=== PATIENT | female | born 1970 | race Caucasian/White ===

== ENCOUNTER → 2016-08-21 | Outpatient (CLI) | payer OTHER ==
[~2016-08-21] MED LIST: GADOBUTROL 10 ML VIAL IVP ONE
--- NOTE | 2016-08-21 13:03 | MR ---
MRI of the Brain (Without and with contrast Contrast) History: Atypical facial pain. G 50.1, pain is around eye and face Technique: T1-weighted images were acquired axially and sagittally from the foramen magnum to the ve rtex. Axial fast inversion recovery, fast T2-weighted, GRE and diffusion-weighted axial images were obtained without contrast. 6.5 mL Gadavist injected intravenously without complication. Sagittal axia l and coronal T1-weighted images. Findings: There is a single, nonspecific, curvilinear isovolumic, T2 bright focus of white matter hyp erintensity in the deep white matter of the left posterior parietal lobe, that is not associated with reduced diffusion, hemorrhage or abnormal enhancement. The ventricles, cisterns, and sulci are norm al without atrophy, hydrocephalus, midline shift, herniation, or epidural/subdural hematomas. No intr acranial hemorrhage or masses. The region of the cavernous sinuses and Meckel's cave are symmetric an d normal. There is no abnormal enhancement of either trigeminal nerve. No abnormal signal or enhancem ent is present in the franchesca. Diffusion-weighted sequence demonstrates no acute infarct. Cerebellar ton sils are in normal position. The cerebellar pontine angles, internal auditory canals and middle ears are symmetric and normal. No obvious parotid gland abnormality is identified. Pituitary gland is norm al in size. Normal signal flow-void in the superior sagittal sinus, basilar artery, and bilateral int ernal carotid arteries indicating patency there is a small benign pineal cyst. There is no abnormal m eningeal enhancement to suggest meningitis. Interestingly the pituitary stalk is mildly deviated towa rd the patient's right there is possibly subtle hypoenhancement of the left pituitary gland.. Paranas al sinuses and mastoid air cells are clear. Incidentally noted is degenerative change in the mid cerv ical spine, superimposed upon a congenitally small cervical neural canal with a possible disk protrus ion causing central canal stenosis at C5-C6.Both temporomandibular joint menisci are anteriorly dislo cated in the closed mouth position. Impression: 1. Nonspecific white matter lesion, deep in the left parietal white matter. This can be followed on subsequent MRI as clinically directed. 2. Subtle evidence for a possible left pituitary microadenoma. If clinically indicated a dedicated pi tuitary MRI could be performed. 3. No source for atypical facial pain identified. Perhaps this is a prodrome for herpes zoster. 4. Bilateral temporal mandibular joint menisci dysfunction. If this is clinically important to evalua te, then dedicated MRI of the TMJs in the closed and open mouth position could be performed. 5. Possible cervical spinal stenosis.
== END ==
LOC: FIMAGING 10:39
PROVIDERS: ATTEND Psychiatry & Neurology Neurology
DX: G50.1 Atypical facial pain (principal); R93.0 Abnormal findings on diagnostic imaging of skull and head, not elsewhere classified; M26.69 Other specified disorders of temporomandibular joint
CPT/HCPCS: A9585

== ENCOUNTER → 2016-11-27 | Outpatient (CLI) | payer OTHER | LOC: FIMAGING 13:25 | PROVIDERS: ATTEND Psychiatry & Neurology Neurology | DX: M48.02 Spinal stenosis, cervical region (principal); M50.30 Other cervical disc degeneration, unspecified cervical region; R20.2 Paresthesia of skin ==

== ENCOUNTER 2018-08-30 11:02 | Day surgery (SDC) | payer OTHER ==
[2018-08-30] MEDS ORDERED: MIDAZOLAM 2 MG/2 ML VIAL IVP ONE (11:06)
[2018-08-30] MEDS ORDERED: LR 1,000 ML IV ONE (11:22)
--- NOTE | 2018-08-30 11:55 | PDANEPAE ---
ANE Past Medical History - Cardiovascular History Hx Hypertension: No Hx Arrhythmias: No Hx Chest Pain: No Hx Coronary Artery / Peripheral Vascular Disease: No Hx CHF / Valvular Disease: No Hx Palpitations: No - Pulmonary History Hx COPD: No Hx Asthma/Reactive Airway Disease: No Hx Recent Upper Respiratory Infection: No Hx Oxygen in Use at Home: No Hx Sleep Apnea: No Sleep Apnea Screening Result - Last Documented: Negative - Neurologic History Hx Cerebrovascular Accident: No Hx Seizures: No Hx Dementia: No - Endocrine History Hx Diabetes: No - Renal History Hx Renal Disorders: No - Liver History Hx Hepatic Disorders: No - Neurological & Psychiatric Hx Hx Neurological and Psychiatric Disorders: Yes Neurological / Psychiatric History Comment: slight tremor. anxiety - Cancer History Hx Cancer: Yes Cancer History Comment: colon cancer - Congenital Disorder History Hx Congenital Disorders: No - GI History Hx Gastrointestinal Disorders: Yes Gastrointestinal History Comment: acid reflux - Other Health History Other Health History: none - Chronic Pain History Chronic Pain: Yes (arthritis to neck limited rom) - Surgical History Prior Surgeries: none in last 5 yrs ANE Review of Systems Review of Systems: - Exercise capacity METS (RN): 5 METS ANE Patient History - Allergies Allergies/Adverse Reactions: adhesive [Adhesive] Allergy (Mild, Verified 08/23/18 16:20) Rash - Home Medications Home Medications: Acetaminophen 08/23/18 [Last Taken 08/29/18] Herbals/Supplements -Info Only 08/23/18 [Last Taken 08/29/18] Famotidine 08/30/18 [Last Taken 08/30/18] - NPO status NPO Since - Liquids (Date): 08/30/18 NPO Since - Liquids (Time): 09:30 NPO Since - Solids (Date): 08/29/18 NPO Since - Solids (Time): 20:00 - Smoking Hx Smoking Status: Never smoked - Family Anes Hx Family Hx Anesthesia Complications: none ANE Labs/Vital Signs - Vital Signs Blood Pressure: 160/105 Heart Rate: 77 Respiratory Rate: 20 O2 Sat (%): 96 Height: 165.1 cm Weight: 65.771 kg ANE Physical Exam - Airway Neck exam: FROM Mallampati Score: Class 3 Mouth exam: normal dental/mouth exam - Pulmonary Pulmonary: clear to auscultation - Cardiovascular Cardiovascular: regular rate and rhythym - ASA Status ASA Status: II ANE Anesthesia Plan Anesthesia Plan: MAC
[2018-08-30] MEDS ORDERED: ceFAZolin 2 GM/DEXTROSE 100 ML IV ONE (12:17)
--- NOTE | 2018-08-30 12:17 | PDHPUP ---
History & Physical Update H&P update statement: This history and physical update is based on an assessment of the patient which was completed after admission or registration (within 24 hours), but prior to the surgery/procedure. H&P update: H&P reviewed & patient examined (no changes), no change in patient' s condition since H&P completed H&P changes: no changes
[2018-08-30] MEDS ORDERED: ROPIVACAINE HCL 150 MG/30 ML INJ ONE (12:22)
[2018-08-30] MEDS ORDERED: LIDOCAINE 2% 5 ML SDV ONE (12:22)
[2018-08-30] MEDS ORDERED: BUPIVACAINE 0.5% 30 ML SDV ONE (12:22)
[2018-08-30] MEDS ORDERED: BACITRACIN 50,000 UNITS/10 ML SYR IRR ONE (12:23)
[2018-08-30] MEDS ORDERED: DEXAMETHASONE 4 MG/ML VIAL ONE (12:23)
[2018-08-30] MEDS ORDERED: PROPOFOL/EMULSION 500 MG/50 ML BOTTLE IV ONE ×2 (12:32→13:18)
[2018-08-30] MEDS ORDERED: RANITIDINE 50 MG/2 ML VIAL ONE (13:05)
[2018-08-30] MEDS ORDERED: METOCLOPRAMIDE 10 MG/2 ML VIAL ONE (13:06)
[2018-08-30] MEDS ORDERED: PROPOFOL 200 MG/20 ML VIAL ONE (14:17)
[2018-08-30] MEDS ORDERED: fentaNYL 100 MCG/2 ML INJ IVP PRN (14:18)
[2018-08-30] MEDS ORDERED: ALBUTEROL 3 ML DEYVIAL IH PRN (14:18)
[2018-08-30] MEDS ORDERED: HYDROmorphONE/DILAUDID 2 MG/ML INJ IVP PRN (14:18)
[2018-08-30] MEDS ORDERED: oxyCODONE IR 5 MG TAB PO PRN (14:18)
[2018-08-30] MEDS ORDERED: PROMETHAZINE HCL 25 MG/ML INJ IVP PRN (14:18)
[2018-08-30] MEDS ORDERED: DIAZEPAM 5 MG/ML 1 ML SYR IVP PRN (14:18)
[2018-08-30] MEDS ORDERED: DEXAMETHASONE 4 MG/ML VIAL IVP PRN (14:18)
[2018-08-30] MEDS ORDERED: METOCLOPRAMIDE 10 MG/2 ML VIAL IVP PRN (14:18)
[2018-08-30] MEDS ORDERED: NALOXONE HCL 0.4 MG/ML INJ IVP PRN (14:18)
[2018-08-30] MEDS ORDERED: ACETAMINOPHEN 500 MG TAB PO PRN (14:18)
[2018-08-30] MEDS ORDERED: ONDANSETRON 4 MG/2 ML VIAL IVP PRN (14:18)
[2018-08-30] MEDS ORDERED: MEPERIDINE 25 MG/0.5 ML AMP IVP PRN (14:18)
--- NOTE | 2018-08-30 14:55 | POSTANESTH ---
Post Anesthetic Evaluation Cardiovascular Status: Normal, Stable Respiratory Status: Normal, Stable Level of Consciousness/Mental Status: Mildly Sleepy, Arousable Pain Control: Adequate, Prn Tx Ordered Nausea/Vomiting Control: Adequate, Prn Tx Ordered Complications Possibly Related to Anesthesia: None Noted
--- NOTE | 2018-08-30 15:03 | POSTOPPROG ---
Post Op Note Date of Operation: 08/30/18 Surgeon: Ambar Calderon Office Manager Executive Assistant: none Anesthesiologist: vasquez Carrasquillo MD Anesthesia: LMA Pre-op Diagnosis: 1. Hallux rigidus 2. deep internal fixation. 3. tailor bunion left foot Post-op Diagnosis: same Indication: pain. deformity. bony prominences Procedure: 1.Cheilectomy,implant 2. removal of 2 screws first mth 3. condylectomy 5met Findings: Loose bone fragment first mtph, DJD, burried screws. Inf/Abcess present in the surg proc area at time of surgery?: No Depth: Deep Incisional (Fascial) EBL: Minimal Complications: none Specimen(s): none
[2018-08-30] MEDS ORDERED: oxyCODONE IR 5 MG TAB ONE (16:00)
[2018-08-30 16:19] VITALS: BP 162/97
--- NOTE | 2018-08-30 16:41 | GOP ---
[f rep st] OPERATIVE REPORT DATE OF OPERATION: 08/30/2018 SURGEON: Ambar Calderon DPM ANESTHESIA: Mac/light general. ANESTHESIOLOGIST: Jeaneth Carrasquillo MD PREOPERATIVE DIAGNOSIS: 1. Deep internal fixation, 1st metatarsal, left foot. 2. Hallux rigidus, left foot. 3. Tailor bunion deformity, left foot. POSTOPERATIVE DIAGNOSIS: 1. Deep internal fixation, 1st metatarsal, left foot. 2. Hallux rigidus, left foot. 3. Tailor bunion deformity, left foot. PROCEDURE PERFORMED: 1. Removal of deep internal fixation, 2 screws, 1st metatarsal head. 2. Cheilectomy 1st metatarsophalangeal joint with removal of dorsal bone spurs and loose bone fragme nt, 1st metatarsal left foot. 3. Implant arthroplasty, 1st metatarsophalangeal joint. Implant utilized Cartiva, left foot. 4. Condylectomy for tailor bunion deformity, 5th metatarsal left foot. FINDINGS: INDICATIONS: Patient points to the 1st metatarsophalangeal joint and 5th metatarsal head where she c omplains of pain present for greater than 6 months, progressively getting worse. Pain limiting her a ctivities and limiting her walking. Pain at a 4/10 to 5/10 and the worst, 8/10 to 9/10. Gets some r elief with flexible loafer type shoe, but has pain when walking. She has tried various shoes, and si nce conservative treatment efforts exhausted, she would like to proceed with surgery at this time. DESCRIPTION OF PROCEDURE: Patient was brought into the operating room, placed on the operating table in the supine position. Intravenous sedation administered by the anesthesiologist. A posterior tib ial and peripheral nerve block was obtained utilizing a total of 5 cc 1% lidocaine plain, 5 cc of 0.5 % Marcaine plain, and 10 cc of 0.5% ropivacaine. The lower extremity was prepped and draped in the u sual sterile manner. After the limb had been elevated, it was exsanguinated with an Esmarch bandage, and the ankle tourniquet was inflated to 230 mmHg, and the procedure was begun. Webril padding util ized under the ankle cuff. Procedure #1: Cheilectomy procedure. Attention was directed towards the previous incision line benjamin g the dorsomedial aspect of the 1st metatarsophalangeal joint where a linear incision was created. I ncision was carefully deepened with care of neurovascular structures and clamp and cauterized bleeder s. Linear capsulotomy performed exposing large loose bone fragment which was removed from the wound in toto and then 2 small joint mice as well. Dorsal bony hypertrophy noted on the 1st metatarsal hea d which was resected with a sagittal saw. Procedure #2: The lateral screw head was exposed. However, the more medial screw was completely bur ied under bone which was now exposed with the cheilectomy procedure resecting the dorsal bony promine nce. However, then a Zita bur and egg-shaped bur were utilized to gently remove additional bone t o allow for exposure of the head of the medial screw so it can be removed. Then utilizing the Osteom ed screwdriver, both screws were removed successfully. One screw was 4.0, the other 3.0, both were l ocated at the dorsal aspect of the 1st metatarsal head, therefore I felt that it was necessary to lawrence ly a bone void filler to keep the cortices intact. After the wound was irrigated, the hole defects w ere filled with calcium pyrophosphate successfully. Note on observation of the joint, scar tissue wa s noted, and 80% of the cartilage was absent on that 1st metatarsal head. On the base of the phalanx , 50% of the cartilage was absent, and there was some subtle hypertrophy along the dorsal aspect of t he base of the phalanx, which was also resected with a sagittal saw. The site was smoothed with a po wered rotating bur. Wound was copiously irrigated throughout the procedure with bacitracin irrigatio n solution. Procedure #3: Implant arthroplasty procedure. Utilizing the Cartiva sizer, it was determined the 8 mm implant would work well. A 4.5 K-wire was initially utilized to determine the correct positioning . Once determined, the larger K-wire with a guide was placed, C-arm AP lateral views were taken to c onfirm proper placement. Then utilizing the Cartiva drill, approximately 6 mm was drilled into the 1 st metatarsal head. Wound was irrigated with bacitracin irrigation solution. 8 mm Cartiva implant w as then placed into the joint. It sat proud approximately 3 mm dorsally and approximately 1 mm plant yanna. With passive hallux range of motion, no restrictions noted and smooth gliding. I was pleased with the positioning. The wound was copiously irrigated with bacitracin irrigation solution. Capsul ar closure achieved with 2-0 and 3-0 Vicryl. Subcutaneous closure 4-0 Monocryl. Procedure #4: Condylectomy for talar bunion deformity. Attention was directed towards the dorsal as pect of the 5th metatarsophalangeal joint where a linear incision was created. Incision was carefull y deepened with care of neurovascular structures and clamped and cauterized bleeders. Linear capsulo nabil performed exposing the dorsolateral aspect of the 5th metatarsal head, which was noted to be hyp ertrophied. Bone was resected with a sagittal saw and then smoothed with minimally with a rotating b ur until no sharp edges were noted. With loading the forefoot, reduction of the bony prominence was appreciated, at the same time leaving articular surface intact for articulation of the 5th digit. Th e wound was copiously irrigated with bacitracin irrigation solution. Capsular closure achieved with 2-0 and 3-0 Vicryl. Tourniquet was released and a normal hyperemic response was noted to all digits. Skin was closed at both the 1st metatarsophalangeal joint and 5th metatarsophalangeal joint utilverónicai ng 4-0 Prolene in a horizontal mattress and in simple interrupted suture fashion. Dressings include Xeroform, 4 x 4's, fluffs, Juan Manuel, reinforced with tape, and an Kurt bandage. Patient tolerated the pr ocedure and anesthesia well and left the operating room. Vital signs stable and vascular status inta ct to all digits. Additional injectables included 10 cc of 0.5% ropivacaine to enhance postoperative anesthesia. No specimens sent to Pathology. In postoperative recovery and was doing well. Her hus band will be providing her transportation home. She is to follow up in our office on Tuesday for woun d check. Prognosis is good. /[id number]/MODL
== END 2018-08-30 16:30 | disposition home or self-care (01) ==
LOC: FSGY 11:02
PROVIDERS: ATTEND Podiatrist
DX: M20.22 Hallux rigidus, left foot (principal); M21.622 Bunionette of left foot; Z96.7 Presence of other bone and tendon implants
CPT/HCPCS: C1713; J0690; J1100; J2250; J2704; J2765; J2780; J2795